=== PATIENT | male | born 1960 | race Caucasian/White ===

== ENCOUNTER → 2019-03-29 | Day surgery (SDC) | payer BC, SELFPAY ==
[~2019-03-29] MED LIST: ACETAMINOPHEN325 M1 PO; CARVEDILOL3.125 MG PO; CHILDREN'S ASPI81 M1 PO; DIOVAN40 MG PO; GLUCOPHAGE XR500 MG PO; LASIX 40 MG TAB40 M2 PO; LIPITOR80 MG PO; LISINOPRIL2.5 MG PO; NICOTINE TRANSD21 M1 TRANSDERM; NITROGLYCERIN0.4 MG PO; NITROSTAT0.4 M1 SL; PLAVIX 75 MG TA75 MG PO; TYLENOL325 MG PO
--- NOTE | ~2019-03-29 | PROC ---
[address] [address] PROCEDURE REPORT Name: BIBI PATTON Room: [facility]#: [id number] Admission: 03/29/19 Attend Phys: Alok Bui MD Discharge: Date of : 56 Report #: [id number] THIS REPORT FOR: //name// For GI report, please see the Provation report in Perceptive 7 content. By: 0659Medical Records Staff ELIE /MAXINE
[2019-03-29 08:57] LABS: HEMOGLOBIN 15.5 gm/dL (14.0-18.0); MCH 30.4 pg (26.0-34.0); MCHC 34.4 g/dL (28.0-37.0); MCV 88.5 fL (80.0-100.0); MPV 8.2 fl. (7.2-11.1); RBC 5.09 mil/uL (4.50-6.00); RDW-CV 13.7 % (10.5-14.5); WBC 6.8 thou/uL (4.0-11.0)
[2019-03-29 09:02] LABS: CALCIUM 9.2 mg/dL (8.5-10.1); CREATININE 1.1 mg/dL (0.6-1.3); POTASSIUM 3.8 mmol/L (3.5-5.1)
--- NOTE | 2019-03-30 16:06 | PATH ---
[address] [address] PATHOLOGY RPT PROCEDURE Name: LUIS M MAYA Room: [facility]#: [id number] Admission: 03/29/19 Date of : 56 Discharge: Report #: [id number] Path Case #: [id number] [facility] Accession Number: [id number] . 01 Material submitted: . colon - RECTAL SIGMOID POLYP . 01 Clinical history: . Colon cancer screening . 02 Diagnosis: Rectal sigmoid polyp: - Hyperplastic polyp. (ZAMZAM:pit 03/29/2019) QTP/03/30/2019 . 02 Electronically signed: . Adán Lama MD, Pathologist NPI- [id number] . 01 Gross description: . The specimen is received in formalin, labeled "Lusi M Maya, rectal sigmoid polyp" and consists of 2 fragments of pink-yoo tissue measuring 0.3 x 0.2 cm and 0.5 x 0.2 cm which are entirely submitted in A1. (SDY; 03/29/2019) SYU/SYU . 02 Pathologist provided ICD-10: K62.1, Z12.11 . 02 CPT . 411824 Specimen Comment: A courtesy copy of this report has been sent to Specimen Comment: [phone], . Specimen Comment: Report sent to / DR PETERS Performed at: 01 [facility] [address], [place], [place] [id number] MD Jose De Jesus Orozco MD Phone: [phone] Performed at: [address] [address] [address], [place], [place] [id number] MD Adán Lama MD Phone: [phone]
== END | disposition home or self-care (01) ==
LOC: M.SUR 08:29
PROVIDERS: Internal Medicine Gastroenterology
DX: Z12.11 Encounter for screening for malignant neoplasm of colon (principal); K62.1 Rectal polyp; K64.8 Other hemorrhoids; I11.0 Hypertensive heart disease with heart failure; I50.22 Chronic systolic (congestive) heart failure; I25.10 Atherosclerotic heart disease of native coronary artery without angina pectoris; I25.2 Old myocardial infarction; I25.5 Ischemic cardiomyopathy; E03.9 Hypothyroidism, unspecified; E78.5 Hyperlipidemia, unspecified; F17.210 Nicotine dependence, cigarettes, uncomplicated; Z85.46 Personal history of malignant neoplasm of prostate; Z95.0 Presence of cardiac pacemaker; Z79.899 Other long term (current) drug therapy; Z98.890 Other specified postprocedural states; Z79.82 Long term (current) use of aspirin

== ENCOUNTER → 2019-04-05 | Outpatient (CLI) | payer BC ==
--- NOTE | 2019-04-05 11:53 | 2DMMODE ---
[place] [address] 2 D/M-MODE ECHOCARDIOGRAM Name: PATTONBIBI Room: [facility]#: [id number] Admission: 04/05/19 Attend Phys: Cornelio Healy Discharge: Date of : 56 Date of Service: 04/05/19 1152 Report #: [id number] THIS REPORT FOR: //name// APPROVED REPORT Study performed: 04/05/2019 09:07:13 EXAM: Comprehensive 2D, Doppler, and color-flow Echocardiogram Patient Location: Out-Patient BSA: 2.14 HR: 66 bpm BP: 107/73 mmHg Other Information Study Quality: Good Indications CAD Cardiomyopathy Hypertension/HDD 2D Dimensions IVSd: 12.44 (7-11mm) LVOT Diam: 20.18 (18-24mm) LVDd: 51.99 mm PWd: 6.61 (7-11mm) Ascending Ao: 33.07 (22-36mm) LVDs: 48.73 (25-40mm) Aortic Root: 32.97 mm Volumes Left Atrial Volume (Systole) LA ESV Index: 15.50 mL/m2 Aortic Valve AoV Peak August.: 1.09 m/s AO Peak Gr.: 4.73 mmHg LVOT Max P.00 mmHg AO Mean Gr.: 2.64 mmHg LVOT Mean P.49 mmHg LVOT Max V: 1.12 m/s AO V2 VTI: 21.85 cm LVOT Mean V: 0.74 m/s DONN (VTI): 2.99 cm2 LVOT V1 VTI: 20.39 cm Mitral Valve E/A Ratio: 0.82 MV Decel. Time: 258.99 [place] [address] 2 D/M-MODE ECHOCARDIOGRAM Name: BIBI PATTON Room: [facility]#: [id number] Admission: 04/05/19 Attend Phys: Cornelio Healy Discharge: Date of : 56 Date of Service: 04/05/19 1152 Report #: [id number] MV E Max August.: 0.46 m/s MV PHT: 75.11 ms MVA (PHT): 2.93 cm2 TDI E/Lateral E': 5.11 E/Medial E': 6.57 Medial E' August.: 0.07 m/s Lateral E' August.: 0.09 m/s Pulmonary Valve PV Peak August.: 1.35 m/s PV Peak Gr.: 7.30 mmHg Tricuspid Valve RAP Estimate: 5.00 mmHg TR Peak Gr.: 18.02 mmHg RVSP: 23.02 mmHg PA Pressure: 23.02 mmHg Left Ventricle The left ventricle is normal size. Regional wall motion abnormalities are noted. akinesis of the inferior wall There is normal left ventricular wall thickness. Left ventricular systolic function is moderate to severely decreased. LVEF is 30-35%. Grade I - abnormal relaxation pattern. Right Ventricle The right ventricle is normal size. The right ventricular systolic function is normal. Pacemaker lead is present in the right ventricle. Atria The left atrium size is normal. Pacemaker lead is present in the right atrium. The right atrium size is normal. Aortic Valve Aortic valve is mildly calcified. Mild aortic regurgitation. There is no aortic valvular stenosis. Mitral Valve The mitral valve is normal in structure. Mild mitral regurgitation. No evidence of mitral valve stenosis. Tricuspid Valve The tricuspid valve is normal in structure. Mild tricuspid regurgitation. Pulmonic Valve The pulmonary valve is normal in structure. [place] [address] 2 D/M-MODE ECHOCARDIOGRAM Name: BIBI PATTON Room: [facility]#: [id number] Admission: 04/05/19 Attend Phys: Cornelio Healy Discharge: Date of : 56 Date of Service: 04/05/19 1152 Report #: [id number] valvular regurgitation. Great Vessels The aortic root is normal in size. IVC is normal in size and collapses >50% with inspiration. Pericardium There is no pericardial effusion. <Conclusion> LVEF is 30-35%. Mild aortic regurgitation. Mild mitral regurgitation. Regional wall motion abnormalities are noted. akinesis of the inferior wall <ELECTRONICALLY SIGNED> By: Romero Jensen MD, FACC 04/05/19 1152 115 115 Romero Jensen MD, FAC /INF
== END ==
LOC: M.CRD 08:23
DX: I08.3 Combined rheumatic disorders of mitral, aortic and tricuspid valves (principal); I25.10 Atherosclerotic heart disease of native coronary artery without angina pectoris; I21.19 ST elevation (STEMI) myocardial infarction involving other coronary artery of inferior wall; I10 Essential (primary) hypertension; I25.5 Ischemic cardiomyopathy; Z88.2 Allergy status to sulfonamides

== ENCOUNTER 2019-05-09 19:47 | Observation (INO) | payer OTHER ==
[~2019-05-09] VITALS: Ht 182.9 cm; Wt 95.3 kg
[2019-05-09 19:54] VITALS: BP 140/91
[2019-05-09 20:16] LABS: ABSOLUTE BASOPHILS 0.1 thou/uL (0.0-0.2); ABSOLUTE EOSINOPHILS 0.1 thou/uL (0.0-0.7); ABSOLUTE LYMPHOCYTES 1.7 thou/uL (0.8-5.3); ABSOLUTE MONOCYTES 0.7 thou/uL (0.0-1.2); ABSOLUTE NEUTROPHILS 6.4 thou/uL (1.6-8.1); BASOPHILS 0.7 %; EOSINOPHILS 1.6 %; HEMATOCRIT 41.1 % (42.0-52.0); HEMOGLOBIN 13.8 gm/dL (14.0-18.0); LYMPHOCYTES 18.6 %; MCH 29.7 pg (26.0-34.0); MCHC 33.6 g/dL (28.0-37.0); MCV 88.4 fL (80.0-100.0); MONOCYTES 8.1 %; MPV 7.7 fl. (7.2-11.1); NUCLEATED RBCS 0 /100WBC; PLATELET COUNT* 228 thou/uL (150-400); RBC 4.66 mil/uL (4.50-6.00); RDW-CV 13.8 % (10.5-14.5)
[2019-05-09 20:23] LABS: ANION GAP 10 mmol/L (7-16); BUN 18 mg/dL (7-18); CALCIUM 8.9 mg/dL (8.5-10.1); CHLORIDE 102 mmol/L (98-107); CO2 27 mmol/L (21-32); CREATININE 1.1 mg/dL (0.6-1.3); GLUCOSE 136 mg/dL (70-99); POTASSIUM 3.4 mmol/L (3.5-5.1); SODIUM 139 mmol/L (136-145)
[2019-05-09 20:25] LABS: URINE BILIRUBIN NEGATIVE (Negative); URINE BLOOD NEGATIVE (Negative); URINE CLARITY CLEAR; URINE COLOR YELLOW; URINE GLUCOSE-RANDOM NEGATIVE (Negative); URINE KETONES NEGATIVE (Negative); URINE LEUKOCYTES-REFLEX NEGATIVE (Negative); URINE NITRITE-REFLEX NEGATIVE (Negative); URINE PROTEIN NEGATIVE (Negative); URINE SPECIFIC GRAVITY <= 1.005 (1.005-1.030); URINE UROBILINOGEN 0.2 E.U./dl (0.2-1.0)
[2019-05-09 20:27] LABS: PROTIME 10.6 Seconds (9.20-11.50)
[2019-05-09 20:34] LABS: ALBUMIN 3.9 g/dL (3.4-5.0); ALKALINE PHOSPHATASE 64 U/L (46-116); LIPASE 413 U/L (73-393); NT-PRO BRAIN NAT PEPTIDE 147 pg/mL (<300); SGOT 18 U/L (15-37); SGPT 29 U/L (30-65); TOTAL BILIRUBIN 0.4 mg/dL (<0.1-1.0); TOTAL PROTEIN 7.7 g/dL (6.4-8.2); TROPONIN-I LEVEL <0.06 ng/mL (<0.06)
[2019-05-09 23:25] VITALS: BP 103/64
[2019-05-10 06:35] VITALS: BP 100/62
[2019-05-10 06:49] VITALS: BP 110/79
[2019-05-10 08:00] VITALS: BP 123/78
--- NOTE | 2019-05-10 10:47 | NUR ---
Pt is A&O. Resides at home alone. Active and independent. No DME. No hx of HH or SNF. Supportive family and friends. Goal is home at dc. No needs anticipated. Following.
[2019-05-10 11:51] VITALS: BP 115/78
--- NOTE | 2019-05-10 14:37 | EKG ---
[place] [address] ELECTROCARDIOGRAM REPORT Name: BIBI PATTON Room: [address] ADM IN .R.#: [id number] Admission: 05/09/19 Attend Phys: Perez Patel MD Discharge: Date of : 56 Report #: [id number] THIS REPORT FOR: //name// [facility] ED Test Date: 2019-05-09 Test Time: 19:51:16 Pat Name: BIBI PATTON Department: Room: [facility] Gender: M Senior Drafter: : 1960 Requested By: Cecy Michael Order Number: [id number] MD: Romero Jensen Measurements Intervals [place] Rate: 81 P: 53 ID: [id number] QRS: -32 QRSD: 110 T: -43 QT: 373 QTc: 433 Interpretive Statements Sinus rhythm Probable left atrial enlargement Inferior infarct, age indeterminate Compared to ECG 08/12/2014 15:20:16 paced rhythm no longer present Electronically Signed On 05-10-2019 14:37:17 CDT by Romero Jensen [email or web address] <ELECTRONICALLY SIGNED> By: Romero Jensen MD, [facility] 05/10/19 1437 50 50 Romero Jensen MD, [facility] /EPI
--- NOTE | 2019-05-10 17:05 | EXE ---
[place] [address] STRESS ECHOCARDIOGRAM Name: PATTONBIBI Room: [address] IN ..#: [id number] Admission: 05/09/19 Attend Phys: Perez Patel, Discharge: Date of : 56 Date of Service: 05/10/19 1705 Report #: [id number] THIS REPORT FOR: //name// APPROVED REPORT Study performed: 05/10/2019 16:05:18 Exam: Stress Echocardiogram Indication: Chest pain Patient Location: In-Patient Stress Nurse: Abigail Jerez RN Room #: [facility] Supervising Physician: Romero Jensen MD Status: routine Ht: 6 ft 0 in HR: 66 bpm BP: 110/56 mmHg Rhythm: NSR Medical History Medical History: CAD s/p AL, Pacemaker Cardiac Risk Factors: Tobacco History (Current/Recent), HTN, Hyperlipidemia, FHX of CAD, DM Procedure The patient underwent an Exercise Stress Test using the Malick Protocol. Blood pressure, heart rate, and EKG were monitored. An Echocardiogram was performed by agriculture laboratory technician in four stages in quad fashion. At peak stress, four selected images were obtained and placed side by side with resting images for comparison. Stress Test Details Stress Test: Exercise stress testing was performed using a Malick protocol. HR Resting HR: 66 bpm Max Heart Rate (APMHR): 160 bpm Max HR Achieved: 152 bpm Target HR (85% APMHR): 136 bpm % of APMHR: 95 Recovery HR: 82 bpm HR response to stress: Normal HR response to stress BP Resting BP: 110/56 mmHg Max BP: 165/82 mmHg Recovery BP: 123/81 [place] [address] STRESS ECHOCARDIOGRAM Name: BIBI PATTON Room: [address]#: [id number] Admission: 05/09/19 Attend Phys: Perez Patel, Discharge: Date of : 56 Date of Service: 05/10/19 1705 Report #: [id number] BP response to stress: Normal blood pressure response to stress. ECG Resting ECG: Sinus Rhythm Stress ECG: Sinus Tachycardia ST Change: Normal Maximum ST Deviation: 0 mm Arrhythmia: None Recovery ECG: Sinus Rhythm Recovery ST Change: Normal Recovery ST Deviation: 0 mm Recovery Arrhythmia: None Clinical Reason for Termination: Maximal effort, Completed protocol Exercise duration: 8 min sec Highest Stage Achieved: Stage 3: 3.4 mph at 14% grade. Exercise capacity: 10.1 METs Pre-Stress Echo The resting Echocardiogram showed abnormal left ventricular contractility with an estimated Ejection Fraction of about 35-40%. severe hypokinesis noted of the inferior wall Post-Stress Echo The stress Echocardiogram showed abnormal left ventricular contractility with an estimated Ejection Fraction of about 45-50%. severe hypokinesis of the inferior wall persisted Conclusion Clinical Response: Non-ischemic Exercise Capacity: Average Stress ECG Response: Non-ischemic Stress Echo Images: Equivocal indeterminate stress echo for predicting future cardiac events secondary to resting wall motion abnormality. Other Information Study Quality: Good <Conclusion> [place] [address] STRESS ECHOCARDIOGRAM Name: BIBI PATTON Room: [address] IN [facility]#: [id number] Admission: 05/09/19 Attend Phys: Perez Patel, Discharge: Date of : 56 Date of Service: 05/10/191704 Report #: [id number] indeterminate stress echo for predicting future cardiac events secondary to resting wall motion abnormality. <ELECTRONICALLY SIGNED> By: Romero Jensen MD, FACC 05/10/191704 04 04 Romero Jensen MD, FACC /INF
--- NOTE | 2019-05-10 17:43 | CON ---
[address] [address] CONSULTATION Name: BIBI PATTON Room: [address] IN .R.#: [id number] Admission: 05/09/19 Attend Phys: Perez Patel MD Discharge: Date of : 56 Report #: [id number] THIS REPORT FOR: //name// CC: Joel Patel DATE OF SERVICE: 05/10/2019 HISTORY OF PRESENT ILLNESS: The patient is a 58-year-old single white male, who I was asked to see in the hospital today after he presented with chest pain. The patient initially presented in 07/2014 after an episode of chest pain that persisted. He was found to be having an acute inferior STEMI and went to urgent cardiac catheterization by Dr. Bangura. 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 It did not appear to be readily amenable to stenting because of its tortuosity and aneurysmal dilatation. He decided not to intervene. There was no significant disease in the LAD or circumflex. Echocardiogram showed ejection fraction 35% with inferior akinesia. He was discharged on aspirin, Plavix, carvedilol, lisinopril, and Lipitor. The patient was readmitted 2 days after his discharge with shortness of breath. 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 I then inserted a permanent dual chamber [employer] pacemaker. He has actually done fairly well since that time. He actually just had a nuclear stress test in 10/2018 here at [place] that showed there was a defect involving the inferior wall, but no reversible defects. His ejection fraction was only 32%. He actually had an echocardiogram done just last week that showed ejection fraction of 30-35% with inferior akinesia. There was mild aortic sclerosis. The patient states he was doing well until 2 days ago, he felt an ache in the left side of his chest. It seemed to be worse with cough. Denied diaphoresis, nausea, shortness of breath. It resolved and he woke up yesterday. He again felt an ache in the left side of his chest. He had no belching, coughing, or blood in his stool. He had no trauma to his chest. He came in to the hospital and was admitted. The patient denies exertional dyspnea, palpitations, or syncope. PAST MEDICAL HISTORY: Otherwise, significant for removal of his prostate last year at [facility] for cancer. He has hypertension and hyperlipidemia. MEDICATIONS: Consists of aspirin, carvedilol, Plavix, losartan, Crestor, and spironolactone. ALLERGIES: HE HAS AN ALLERGY TO SULFA DRUGS. FAMILY HISTORY: His mother had a heart attack. SOCIAL HISTORY: He is , lives by himself in 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 He smokes half pack of cigarettes a day. No alcohol. REVIEW OF SYSTEMS: No history of stroke, asthma, peptic ulcer disease, liver disease, kidney disease, psychiatric illness, or chronic skin condition. PHYSICAL EXAMINATION: GENERAL: Revealed a middle-aged male, lying in bed, he appeared in no acute distress. VITAL SIGNS: Blood pressure 120/70, pulse 60. He is afebrile. HEENT: He is anicteric. Conjunctivae pink. Mucous membranes moist. NECK: Veins nondistended. No carotid bruits. Neck supple. CHEST: Clear to auscultation. CARDIAC: Regular rate and rhythm. ABDOMEN: Soft. EXTREMITIES: Had no edema. Dorsalis pedis pulse 2+ bilaterally. SKIN: Warm and dry. NEUROLOGIC: Nonfocal. His ECG on admission showed a sinus rhythm with evidence of previous inferior infarction. His workup yesterday, he had a portable chest x-ray that showed normal heart size and clear lung arceo. His lab work; sodium 139, creatinine 1.1. Liver function studies were normal. Troponins all 0.06. Previous LDL 166. White blood cell count 9.0, hemoglobin 13.8. IMPRESSION AND RECOMMENDATIONS: 1. Chest pain. Atypical for angina. Recommend stress echo. 2. Previous inferior wall myocardial infarction. 3. Cardiomyopathy. The patient is on a beta-daniela, ARB and Aldactone. 4. Tobacco abuse. 5. Hyperlipidemia. The patient is on a statin drug. 6. History of prostate cancer. <ELECTRONICALLY SIGNED> By: Romero Jensen MD, [facility] 05/10/19 1743 1116 1423Dkelsey Jensen MD, [facility] /nt
[2019-05-10 18:12] VITALS: BP 98/65
--- NOTE | 2019-05-10 18:15 | NUR ---
ASSUMED PT CARE REPORT RECEIVED FROM NURSE PT IS AOX4 APACED ON FINANCIAL RESERVE CLERK. ON RA. IV FLUID INFUSING. PT HAD A STRESS ECHO TEST DONE. RESULT NORMAL. DISCHARGE PENDING PER HOSPITALIST. PERINATAL TECHNICIAN CLEARED PT TO GO HOME WITH INSTRUCTION TO STOP TAKING ASPIRIN, ASA REMOVED BY THIS NURSE FROM PT MED LIST. DISCHARGE INSTRUCTION GIVEN TO PT. NURSE INSTRUCTED PT NOT TO TAKE METFORMIN UNTIL 05/12/19 DUE TO CONTRAST USE TODAY. PT STATES UNDERSTANDING. AWAITING FOR FLIGHT ENGINEER INSTRUCTOR.
--- NOTE | 2019-05-10 18:40 | NUR ---
PT LEFT FLOOR AT 0640 PM ACCOMPANIED BY NURSE.
== END 2019-05-10 18:48 | disposition home or self-care (01) ==
LOC: M.ERS 19:47 → M.2W 22:02 → M.TBA-ER 22:02 → M.2W 05-10 06:22
PROVIDERS: Emergency Medicine; ADMIT Internal Medicine
DX: R07.89 Other chest pain (principal); I25.119 Atherosclerotic heart disease of native coronary artery with unspecified angina pectoris; I11.0 Hypertensive heart disease with heart failure; I50.20 Unspecified systolic (congestive) heart failure; I42.9 Cardiomyopathy, unspecified; E78.5 Hyperlipidemia, unspecified; F17.210 Nicotine dependence, cigarettes, uncomplicated; J43.9 Emphysema, unspecified; I25.2 Old myocardial infarction; R79.1 Abnormal coagulation profile; Z79.82 Long term (current) use of aspirin; Z79.899 Other long term (current) drug therapy; Z88.2 Allergy status to sulfonamides; Z82.49 Family history of ischemic heart disease and other diseases of the circulatory system; Z85.46 Personal history of malignant neoplasm of prostate